=== PATIENT | male | born 1940 | race Caucasian/White ===

== ENCOUNTER 2018-11-24 23:29 | Inpatient (IN) | payer MEDICARE ==
[~2018-11-24] VITALS: Ht 182.9 cm; Wt 87.5 kg
--- NOTE | ~2018-11-24 | DS ---
PATIENT:BRIAN WALKER :44 MEDICAL RECORD: [id number] DISCHARGE SUMMARY ADMISSION DATE: 11/25/18 DISCHARGE DATE: 12/18/18 DISCHARGE DIAGNOSES: Major neurocognitive disorder Alzheimer's type with behavioral disturbances, hyperlipidemia, hypertension, history of CVA, GERD, bilateral lower extremity edema, constipation, insomnia, chronic low back pain and shoulder pain. HOSPITAL COURSE: The patient was admitted to the Geropsych unit. Based on his symptomatology of aggression with care at his nursing facility, his medications were changed and notably patient was started on 20 mg of Geodon at bedtime and since that time, his behavior has become less agitated, aggressive and at time of discharge, the patient was simply confused, talking about going to the bank all the time, but not agitated, nor aggressive. On date of discharge, he denied suicidal or homicidal ideation, auditory or visual hallucinations or delusions and was not aggressive. DISCHARGE MEDICATIONS: Include Voltaren gel 2 grams q.i.d. topical, Geodon 20 mg q.h.s., Micardis 80 mg daily, Desyrel 25 mg q.h.s., lidocaine patch daily, Namenda 5 mg b.i.d., Aricept 10 mg q.h.s., Senokot tablet 2 tabs daily, Lipitor 20 mg in the morning, melatonin 3 mg at night, Protonix 40 mg a day. DISCHARGE PLAN: The patient is to be discharged back to his nursing facility today to [facility]. Case discussed with nursing, chart reviewed. The patient interviewed. TRANSINT:[id number] Voice Confirmation ID: [id number] DOCUMENT ID: [id number] GLENN LOPEZ MD CC: [id number] DICTATION DATE: 12/18/181647 MAGNETIC RESONANCE TECHNOLOGIST: 12/19/18 1051 DIS IN 12/18/18 [facility] [address] [place] [address]
--- NOTE | ~2018-11-24 | PN ---
PATIENT:BRIAN WALKER MEDICAL RECORD: [id number] LOCATION:[address] ADMISSION DATE: 11/25/18 PROGRESS NOTE DATE OF SERVICE: 12/13/2018 SUBJECTIVE: The patient's case was discussed with staff. He has no new complaint. OBJECTIVE: The patient denies intent to harm himself or others. He is tolerating his medicines well. Eye contact is poor. ASSESSMENT: Senile dementia of the Alzheimer's type with behavioral disturbances. PLAN: The patient's current medicines have been reviewed and will be maintained. His long-term prognosis is guarded. I am going to reduce his Geodon to 20 mg at bedtime. TRANSINT:[id number] Voice Confirmation ID: [id number] DOCUMENT ID: [id number] MORENA HUTTON MD CC: [id number] DICTATION DATE: 12/13/18 1525 LAYOUT DESIGNER: 12/13/18 [address] [facility] [address] [id number]
[2018-11-24] MEDS ORDERED: BUSPAR 15 MG TA15 MG (23:46)
[2018-11-24] MEDS ORDERED: MELATONIN 3 MG1 TAB (23:46)
[2018-11-24] MEDS ORDERED: XANAX0.5 MG (23:46)
[2018-11-24] MEDS ORDERED: ALEVE220 MG (23:47)
[2018-11-24] MEDS ORDERED: OMEPRAZOLE20 M1 (23:47)
[2018-11-24] MEDS ORDERED: MICARDIS80 MG (23:47)
[2018-11-24] MEDS ORDERED: LIPITOR80 MG (23:47)
[2018-11-25 00:08] LABS: APPEARANCE CLEAR (CLEAR); BILIRUBIN NEGATIVE (NEGATIVE); COLOR YELLOW (YELLOW); GLUCOSE NEGATIVE (NEGATIVE); KETONE NEGATIVE (NEGATIVE); NITRITE NEGATIVE (NEGATIVE); PROTEIN NEGATIVE (NEGATIVE); UROBILINOGEN NORMAL (NORMAL)
--- NOTE | 2018-11-25 00:08 | NUR ---
IN AND OUT CATH PER STERILE TECHNIQUE. PT MOANED, BUT DID NOT WAKE UP.
[2018-11-25 00:09] LABS: BASOPHILS 0.6 % (0-2); EOSINOPHILS 3.3 % (0-7); HEMATOCRIT 36.2 % (42.0-54.0); HEMOGLOBIN 12.2 g/dL (13.5-17.5); IMMATURE GRANULOCYTES 0.2 % (0-5); LYMPHOCYTES 24.4 % (15-50); MCH 30.7 pg (26.0-34.0); MCHC 33.7 g/dL (31.0-37.0); MEAN PLATELET VOLUME 9.9 fL (7.4-10.4); NEUTROPHILS 60.5 % (40-80); PLATELET COUNT 214 10x3/uL (130-400); RBC 3.98 10x6/uL (4.20-6.10); RDW 15.1 % (11.5-14.5); WBC 4.8 10x3/uL (4.8-10.8)
[2018-11-25 00:26] LABS: UDS - AMPHET NEGATIVE QUAL (NEGATIVE); UDS - BARB NEGATIVE QUAL (NEGATIVE); UDS - BENZO POSITIVE QUAL (NEGATIVE); UDS - COCAINE NEGATIVE QUAL (NEGATIVE); UDS - OPIATE NEGATIVE QUAL (NEGATIVE); UDS - PCP NEGATIVE QUAL (NEGATIVE); UDS - THC NEGATIVE QUAL (NEGATIVE)
[2018-11-25 00:30] VITALS: BP 103/53
[2018-11-25 00:30] LABS: ALBUMIN 2.9 g/dL (3.4-5.0); ALKALINE PHOSPHATASE 130 U/L (46-116); ALT (SGPT) 37 U/L (10-68); BILIRUBIN - TOTAL 0.52 mg/dL (0.2-1.3); CALC OSMOLALITY 277 mosm/kg (275-300); CALCIUM 8.5 mg/dL (8.5-10.1); CARBON DIOXIDE 23.2 mmol/L (21.0-32.0); CHLORIDE - SERUM 107 mmol/L (98-107); CREATININE - SERUM 0.9 mg/dL (0.6-1.3); GLUCOSE 109 mg/dL (74-106); POTASSIUM - SERUM 3.6 mmol/L (3.5-5.1); PROTEIN - SERUM 6.2 g/dL (6.4-8.2); SODIUM 139 mmol/L (136-145); UREA NITROGEN 9 mg/dL (7-18); eGFR NON AFRICAN AMERICAN 87 mL/min (90-120)
--- NOTE | 2018-11-25 01:15 | NUR ---
PT SITTING UP ON BED. PT ASSISTED INTO GOWN.
[2018-11-25 02:13] VITALS: BP 121/77
[2018-11-25 02:31] VITALS: BP 121/77
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
[2018-11-25 06:42] LABS: CHOL - HDL RATIO 3.4 ratio (2.3-4.9); LDL-HDL RATIO 1.6 ratio (1.5-3.5); THYROID STIMULATING HORMONE 2.66 uIU/mL (0.36-3.74)
--- NOTE | 2018-11-25 07:30 | NUR ---
PT IS ALERT AND ORIENTED TO PERSON ONLY. CALM AND COOPERATIVE WITH ASSESSMENT. REDIRECT AND REORIENT NEEDED. NO AGGRESSION NOTED AT THIS TIME. MED COMPLIANT. FALL PRECAUTIONS IN PLACE. WILL CONTINUE TO MONITOR Q 15 MINUTES FOR SAFETY.
[2018-11-25 19:29] VITALS: BP 110/67
--- NOTE | 2018-11-25 21:31 | NUR ---
PATIENT IS CALM, PLEASANT, CONFUSED BUT NOT CONFUSED UPON ADMISSION, HAS TO BE DIRECTED AND REDIRECTED. HE CAN MAKE NEEDS KNOWN, COMPLIANT WITH MEDS, NO ADVERSE REACTION NOTED. WILL MONITOR AND FOLLOW POC
--- NOTE | 2018-11-26 08:00 | NUR ---
PATIENT IS AWAKE AND ALERT, WITH CONFUSION NOTED. CALM AND COOPERATIVE WITH CARE AND ASSESSMENT. REDIRECT AND REORIENT NEEDED. FALL PRECAUTIONS IN PLACE. MEDICATION COMPLIANT. WILL CONTINUE PLAN OF CARE.
[2018-11-26 08:12] VITALS: BP 117/71
[2018-11-26 09:02] VITALS: BMI 24.4
[2018-11-26 10:57] VITALS: Ht 182.9 cm; Wt 87.5 kg
--- NOTE | 2018-11-26 11:24 | NUR ---
NAPROXEN 250 MG PO GIVEN FOR LEVEL #10 LOWER BACK PAIN.
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
[2018-11-26 19:53] VITALS: BP 104/50; BP 107/72; BP 138/78
--- NOTE | 2018-11-27 03:58 | NUR ---
RECEIVED IN PATIENT ROOM. GETTING READY FOR BED. CALM AND COOPERATIVE WITH CARE AND ASSESSMENT. NO AGGRESSIVE BEHAVIORS. REDIRECT AND REORIENT NEEDED. RESTING IN BED WITH EYES CLOSED AT THIS TIME. CONTINUE PLAN OF CARE.
[2018-11-27 07:00] VITALS: BP 118/82
[2018-11-27 08:15] LABS: RAPID PLASMA REAGIN Non Reactive (Non Reactive)
--- NOTE | 2018-11-27 12:44 | PN ---
PATIENT:BRIAN WALKER MEDICAL RECORD: [id number] LOCATION:[address] ADMISSION DATE: 11/25/18 PROGRESS NOTE DATE OF SERVICE: 11/26/2018 SUBJECTIVE: The patient's case was discussed with staff. He has no new complaint. OBJECTIVE: The patient is much more awake and alert today. He is still severely impaired cognitively, but he is rationally able to make casual conversation with me and answer questions appropriately. ASSESSMENT: Senile dementia of the Alzheimer's type with behavioral disturbances. PLAN: Current medicines have been reviewed and will be maintained. His long-term prognosis is guarded. Both supportive and educational interventions were made. TRANSINT:[id number] Voice Confirmation ID: [id number] DOCUMENT ID: [id number] MORENA HUTTON MD at 1244 CC: [id number] DICTATION DATE: 11/26/18 1625 COMMUNICATION SPECIALIST: 11/26/18 1858 ADM IN [facility] [address] [place] [address]
[2018-11-27 19:38] VITALS: BP 117/62
[2018-11-28 08:00] VITALS: BP 115/73
--- NOTE | 2018-11-28 10:00 | NUR ---
PATIENT AWAKE AND ALERT. CALM AND COOPERATIVE WITH CARE AND ASSESSMENT. NO AGGRESSION NOTED. MEDICATION COMPLIANT. WILL CONTINUE POC.
--- NOTE | 2018-11-28 15:45 | PN ---
PATIENT:BRIAN WALKER MEDICAL RECORD: [id number] LOCATION:[address] ADMISSION DATE: 11/25/18 PROGRESS NOTE DATE OF SERVICE: 11/25/2018 SUBJECTIVE: The patient's case was discussed with staff. He has no new complaint. OBJECTIVE: The patient denies intent to harm himself or others. He is tolerating his medicines well. He has been somewhat agitated today and did require some p.r.n. medication. ASSESSMENT: Senile dementia of the Alzheimer's type with behavioral disturbances. PLAN: The patient is going to be given a low dose of Trilafon to assist with his behavioral disruptions. He will be monitored for clinical changes associated with its use. His long-term prognosis is guarded. TRANSINT:[id number] Voice Confirmation ID: [id number] DOCUMENT ID: [id number] MORENA HUTTON MD at 1545 CC: [id number] DICTATION DATE: 11/27/18 1537 HOOP RIVETING MACHINE OPERATOR HELPER: 11/27/18 1546 ADM IN [place] [id number] [place] [address]
--- NOTE | 2018-11-28 18:27 | NUR ---
PATIENT OBSERVED MAKING UNUSUAL GESTURES IN THE DINING ROOM. STATED THAT HE WAS SEEING WIRES STRETCHED ACROSS THE ROOM AND WAS REMOVING THEM SO THAT HE COULD PASS.
[2018-11-28 22:21] VITALS: BP 120/71
--- NOTE | 2018-11-29 02:00 | NUR ---
RECEIVED IN DAYROOM. WANDERING AROUND. CALM AND COOPERATIVE WITH CARE AND ASSESSMENT. NO AGGRESSIVE BEHAVIORS. REDIRECT AND REORIENT A NEEDED. RESTING IN BED WITH EYES CLOSED AT THIS TIME. CONTINUE PLAN OF CARE.
[2018-11-29 09:08] VITALS: BP 112/77
--- NOTE | 2018-11-29 11:54 | NUR ---
B) The patient is confused, he knows his name, but not place or time. He keeps saying "I was supposed to leave, I'm not supposed to still be here." He has poor insight into his situation. I) Provide prescribed meds, redirect to reality as needed. R) The patient is compliant with meds, he does keep asking for the phone. He needs much redirection and reetitive asnswers to his questions. P) Continue POC.
--- NOTE | 2018-11-29 14:46 | PN ---
PATIENT:BRIAN WALKER MEDICAL RECORD: [id number] LOCATION:[address] ADMISSION DATE: 11/25/18 PROGRESS NOTE DATE OF SERVICE: 11/28/2018 SUBJECTIVE: The patient's case was discussed with staff. He has no new complaint. OBJECTIVE: The patient is sleeping adequately. He is tolerating his medicines well. He has not been aggressive today. ASSESSMENT: Senile dementia of the Alzheimer's type with behavioral disturbances. PLAN: Current medicines and therapies have been reviewed and will be maintained. His long-term prognosis is guarded. TRANSINT:[id number] Voice Confirmation ID: [id number] DOCUMENT ID: [id number] MORENA HUTTON MD at 1446 CC: [id number] DICTATION DATE: 11/28/18 1637 CASINO MANAGER: 11/28/18 192 ADM IN [facility] [address] [place] [address]
--- NOTE | 2018-11-29 16:30 | NUR ---
Spoke to the patient's spouse and she would like to know if the patient is on any medication that would cause hallucinations. Spoke to her about dementia and how dementia can cause hallucinations and that he is on medication that will alleviate the hallucinations, but that it may not take the hallucinations completely away. At this time Cesar Leger spoke to the family and interjected information about dementia and alzheimer's. She told them to look at a website and provided the site and she also provided a written handout to the spouse. The patient's spouse looked at the top words on the sheet and traced over it with her finger and said "Well, I don't see how he can have this when 6 weeks ago he was out of it, getting tube feedings etc., he is improving, getting better." She then pushed the Alzheimer's sheet away from her and toward the patient's [id number]. And said "I just don't think so, I do not believe it."
--- NOTE | 2018-11-29 19:42 | NUR ---
RECEIVED IN DAYROOM. SOCIALIZING WITH PEERS. INTRUSIVE AT TIMES. CALM AND COOPERATIVE WITH CARE AND ASSESSMENT. NO AGGRESSIVE BEHAVIORS. REDIRECT AND REORIENT NEEDED. CONTINUES TO SIT IN DAYROOM AND SOCIALIZE WITH PEERS AT THIS TIME. CONTINUE PLAN OF CARE.
[2018-11-29 20:11] VITALS: BP 121/70
--- NOTE | 2018-11-30 08:17 | NUR ---
B) The patient is very confused, he is keeps wandering into others rooms, he says he is trying to find the bottom floor, staff explain he is on the bottom floor, he continues to ask the same question. He then requests that the MHT's that go into the rooms do something with each of the dressers and he says he has to get home and see about getting his two tractors fixed. He does not know where he is and he has poor insight into his situation. I) Provide prescribed meds. R) The patient is compliant with meds. P) Continue POC.
[2018-11-30 09:37] VITALS: BP 117/79
--- NOTE | 2018-11-30 15:55 | PN ---
PATIENT:BRIAN WALKER MEDICAL RECORD: [id number] LOCATION:[address] ADMISSION DATE: 11/25/18 PROGRESS NOTE DATE OF SERVICE: 11/29/2018 SUBJECTIVE: The patient's case was discussed with staff. He has no new complaint. OBJECTIVE: The patient is in good behavioral control, but quite impaired cognitively. He denies that he would seek to harm himself or others. He is generally tolerating his medicines well. ASSESSMENT: Senile dementia of the Alzheimer's type with behavioral disturbances. PLAN: Current medicines have been reviewed and will be maintained. Long-term prognosis is guarded. Brief supportive and educational interventions were made. TRANSINT:[id number] Voice Confirmation ID: [id number] DOCUMENT ID: [id number] MORENA HUTTON MD at 1555 CC: [id number] DICTATION DATE: 11/29/18 1532 SOLAR LAB TECHNICIAN: 11/29/18 1554 ADM IN [facility] [address] [place] [address]
[2018-11-30 19:47] VITALS: BP 121/53
--- NOTE | 2018-12-01 04:01 | NUR ---
B) Patient is alert and oriented to self, very confused, delusional, wanders and rambles, I) Administered scheduled medications as ordered, monitored for safety, redirected as needed R) Mediation compliant, up during the night wandering the halls, P) Continue plan of care.
--- NOTE | 2018-12-01 07:31 | NUR ---
B) The patient is awake and he is talking. He has poor insight into his situation. He does not know where he is or the time. He knows his name. He is grandiose as he is stating he has 31 credit cards and now they are lost. He ambulates and has his glasses on, but he still acts like he can not see, he runs into furniture as he walks. I) Provide prescribed meds, redirect to appropriate behavior. R) The patient is compliant with medications, but he needs much prompting because he is not following short simple direction. P) Continue POC.
[2018-12-01 07:54] VITALS: BP 96/69
--- NOTE | 2018-12-01 11:38 | PN ---
PATIENT:BRIAN WALKER MEDICAL RECORD: [id number] LOCATION:[address] ADMISSION DATE: 11/25/18 PROGRESS NOTE DATE OF SERVICE: 11/30/2018 SUBJECTIVE: The patient's case was discussed with staff. He has no new complaint. OBJECTIVE: The patient denies intent to harm himself or others. He is quite impaired cognitively. He has been eating and sleeping reasonably well. ASSESSMENT: No change in diagnoses. PLAN: Supportive and educational interventions were made. Long-term prognosis is guarded. TRANSINT:[id number] Voice Confirmation ID: [id number] DOCUMENT ID: [id number] MORENA HUTTON MD at 1138 CC: [id number] DICTATION DATE: 11/30/18 1634 ACCOUNT MANAGER FOREST SERVICE: 11/30/189 ADM IN [place] [id number] [place] [address]
[2018-12-01 20:07] VITALS: BP 130/65
--- NOTE | 2018-12-01 21:24 | NUR ---
B) Patient is alert and very confused, keeps thinking that he has to fix things, wanders, very difficult to communicate with, constantly distracted by his own delusions, I) Administered scheduled medications as ordered, redirected frequently as needed, monitored for safety R) Medication compliant, restless and delusional, P) Continue plan of care.
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
[2018-12-02 07:00] VITALS: BP 129/76
--- NOTE | 2018-12-02 10:17 | PN ---
PATIENT:BRIAN WALKER MEDICAL RECORD: [id number] LOCATION:[address] ADMISSION DATE: 11/25/18 PROGRESS NOTE DATE OF SERVICE: 12/01/2018 SUBJECTIVE: The patient's case was discussed with staff. He has no new complaint. OBJECTIVE: The patient is in good behavioral control with limited insight about his condition. He tolerates his medicines well. ASSESSMENT: Senile dementia of the Alzheimer's type with behavioral disturbances. PLAN: Supportive and educational interventions were made. Long-term prognosis is guarded. TRANSINT:[id number] Voice Confirmation ID: [id number] DOCUMENT ID: [id number] MORENA HUTTON MD at 1017 CC: [id number] DICTATION DATE: 12/01/18 1148 OWNER: 12/01/18 1201 ADM IN [place] [id number] [place] [address]
--- NOTE | 2018-12-02 16:48 | NUR ---
here to visit.
--- NOTE | 2018-12-02 17:52 | NUR ---
IS CONFUSED .SLEPT THIS AM TILL NOON.PO MEDS GIVEN LATE DUE TO HIS BEING SEDATED.COMPLIANT WITH MEDS AND STAFF.WILL CONTINUE WITH PLAN OF CARE,MONITOR FOR SAFETY AND CHANGES.
[2018-12-02 23:07] VITALS: BP 122/67
--- NOTE | 2018-12-03 02:36 | NUR ---
HALDOL AND ATIVAN GIVEN IM TO PATIENT FOR EXTREME AGITATION AND PT. TALKING TO HIMSELF. MULTIPLE TIMES TRIED TO REDIRECT PATIENT BY TALKING, GIVING FOOD AND DRINKS TO PATIENT, NOT ABLE TO BE CALMED DOWN. PATIENT POINTING AT THE WALL IN HIS ROOM AND ASKED IF THE TV WAS WORKING, HE WOULD PULL HIS SHIRT (FROM THE COLLAR) AND TALK INTO IT AND SAY "DID YOU HEAR THAT?" WILL MONITOR
[2018-12-03 07:00] VITALS: BP 110/62
--- NOTE | 2018-12-03 07:45 | NUR ---
PT IS VERY CONFUSED. ALERT TO PERSON ONLY. PT HAS POOR INSIGHT INTO SITUATION. CALM AND COOPERATIVE WITH ASSESSMENT. NO AGGRESSION NOTED AT THIS TIME. MED COMPLIANT. REDIRECT AND REORIENT NEEDED. FALL PRECAUTIONS IN PLACE. REALITY ORIENTED NEEDED. WILL CPOC.
--- NOTE | 2018-12-03 13:45 | PN ---
PATIENT:BRIAN WALKER MEDICAL RECORD: [id number] LOCATION:[address] ADMISSION DATE: 11/25/18 PROGRESS NOTE DATE OF SERVICE: 12/02/2018 SUBJECTIVE: The patient's case was discussed with staff. He has no new complaint. OBJECTIVE: The patient was significantly agitated this morning and required p.r.n. medication. He has very limited insight about his situation. He is severely impaired cognitively. ASSESSMENT: Senile dementia of the Alzheimer's type with behavioral disturbances. PLAN: Supportive and educational interventions were made. Long-term prognosis is guarded. His Aricept is going to be increased to 10 mg at bedtime. TRANSINT:[id number] Voice Confirmation ID: [id number] DOCUMENT ID: [id number] MORENA HUTTON MD at 1345 CC: [id number] DICTATION DATE: 12/02/18 1020 WHITE HAT HACKER: 12/02/18 1328 ADM IN [facility] [address] [place] [address]
--- NOTE | 2018-12-03 13:48 | NUR ---
Nutrition Follow Up: Chart reviewed. Pt is eating 100% meal avg on a regular diet. +BM 12/02/18. Meds and labs reviewed. Rec continue current diet. Pt continues at low nutritional risk. RD following.
[2018-12-03 20:07] VITALS: BP 140/77
--- NOTE | 2018-12-03 22:50 | NUR ---
RECEIVED IN PATIENT ROOM. RESTING IN BED WITH EYES OPEN. CALM AND COOPERATIVE WITH CARE AND ASSESSMENT. NO AGGRESSIVE BEHAVIORS. REDIRECT AND REORIENT NEEDED. RESTING IN BED WITH EYES CLOSED AT THIS TIME. CONTINUE PLAN OF CARE.
[2018-12-04 08:00] VITALS: BP 128/79
--- NOTE | 2018-12-04 08:00 | NUR ---
PT IS AWAKE AND ALERT. PT IS CALM AND COOPERATIVE WITH ASSESSMENT. REDIRECT AND REORIENT NEEDED. NO AGGRESSION NOTED AT THIS TIME. PRESCRIBED MEDS PROVIDED. MED COMPLIANT. FALL PRECAUTIONS IN PLACE. WILL CONTINUE TO MONITOR Q 15 MINUTES FOR SAFETY.
--- NOTE | 2018-12-04 15:50 | PN ---
PATIENT:BRIAN WALKER MEDICAL RECORD: [id number] LOCATION:[address] ADMISSION DATE: 11/25/18 PROGRESS NOTE DATE OF SERVICE: 12/03/2018 SUBJECTIVE: The patient's case was discussed with staff. He has no new complaint. OBJECTIVE: The patient was significantly agitated last night and required p.r.n. medication. He has pretty limited recollection of what happened. Today, he is calm and cooperative. This is the second night in a row that he has required p.r.n. medication because of some agitation. ASSESSMENT: Senile dementia of the Alzheimer's type with behavioral disturbances. PLAN: I am going to start the patient on a low dose of Geodon on a scheduled basis. Hopefully, this will help with some of his agitated behavior. I am going to discontinue the Trilafon since it does not seem to have been helpful. TRANSINT:[id number] Voice Confirmation ID: [id number] DOCUMENT ID: [id number] MORENA HUTTON MD at 1550 CC: [id number] DICTATION DATE: 12/03/18 1537 ANIMAL RIDE MANAGER: 12/03/18 1733 ADM IN [facility] [address] [id number]
--- NOTE | 2018-12-04 16:01 | NUR ---
SW SPOKE TO PT'S AND GAVE HER UPDATE ON DISCHARGE PLANNING. [facility] IS WAITING ON UPDATE WHEN PT GETS STABLE. JORGE IS BACK AND JANIE WILL SEND OFF PPW TO ID IN A COUPLE OF DAYS. PT'S VERBALIZED UNDERSTANDING.
[2018-12-04 20:43] VITALS: BP 114/63
--- NOTE | 2018-12-04 21:22 | NUR ---
B) The patient is awake and alert, but he is confused, he was not able to understand simple direction to take a sip out of a straw. He ambulates independently, wears glasses, but he is not able to see, he walks into reyes and grabs at inanimate objects. I) Provide prescribed meds. R) The patient is compliant with meds, did crush them in applesauce. P) Continue POC.
--- NOTE | 2018-12-05 07:45 | NUR ---
PT IS AWAKE AND ALERT TO PERSON. PT WANDERS UNIT WITH STAFF PRESENT. PT IS VERY CONFUSED. CALM AND COOPERATIVE WITH ASSESSMENT. NO AGGRESSION NOTED. MED COMPLIANT. REDIRECT AND REORIENT NEEDED. FALL PRECAUTIONS IN PLACE. WILL CPOC.
[2018-12-05 08:25] VITALS: BP 119/85
--- NOTE | 2018-12-05 14:03 | PN ---
PATIENT:BRIAN WALKER MEDICAL RECORD: [id number] LOCATION:[address] ADMISSION DATE: 11/25/18 PROGRESS NOTE DATE OF SERVICE: 12/04/2018 SUBJECTIVE: The patient's case was discussed with staff. He has no new complaint. OBJECTIVE: The patient is in good behavioral control, but clearly quite confused and disorganized. He is intermittently eating adequately; but on the whole, I am not satisfied with his caloric intake. ASSESSMENT: Senile dementia of the Alzheimer's type with behavioral disturbances. PLAN: The patient will be started on Megace for an appetite stimulant. [facility] is considering him. If they accept him, I plan on transitioning him out of the hospital in a few days if this level of improvement continues. TRANSINT:[id number] Voice Confirmation ID: [id number] DOCUMENT ID: [id number] MORENA HUTTON MD at 1403 CC: [id number] DICTATION DATE: 12/04/18 1544 BANK EXAMINER: 12/04/18 1838 ADM IN [facility] [address] [place] [address]
[2018-12-05 20:00] VITALS: BP 112/69
--- NOTE | 2018-12-05 20:35 | NUR ---
RECEIVED IN PATIENT ROOM. COMBATIVE WITH MHT WHILE ASSISTING HIM TO GET READY FOR BED. CONFUSED. THOUGHT MHT WAS WEARING HIS GLASSES. REDIRECT AND REORIENT NEEDED. RESTING IN BED WITH EYES OPEN AT THIS TIME. CONTINUE PLAN OF CARE.
[2018-12-05 22:47] VITALS: BP 112/69
--- NOTE | 2018-12-06 09:54 | NUR ---
RED'C PT SITTING IN CHAIR AT NURSES STATION AWAITING BREAKFAST. RESP EVEN AND NONLABORED. NO ACUTE DISTRESS NOTED. CONFUSION NOTED. VISUAL HALLUNCINATIONS NOTED. PT TENDS TO WANDER. AMBULATES PER SELF. PT TAKES MEDICATIONS. WILL CONT TO MONITOR Q 15 MINS FOR SAFETY.
[2018-12-06 12:50] VITALS: BP 125/81
--- NOTE | 2018-12-06 14:19 | PN ---
PATIENT:BRIAN WALKER MEDICAL RECORD: [id number] LOCATION:[address] ADMISSION DATE: 11/25/18 PROGRESS NOTE DATE OF SERVICE: 12/05/2018 SUBJECTIVE: The patient's case was discussed with staff. He has no new complaint. OBJECTIVE: The patient denies intent to harm himself or others. He is generally tolerating his medicines well. He is eating better with the introduction of Megace. At this point, I do not think he is over sedated and I will maintain him on his current medications. ASSESSMENT: Senile dementia of the Alzheimer's type with behavioral disturbances. PLAN: The patient's is planning to take him to [facility]. TRANSINT:[id number] Voice Confirmation ID: [id number] DOCUMENT ID: [id number] MORENA HUTTON MD at 1419 CC: [id number] DICTATION DATE: 12/05/18 1419 METAL FABRICATING SUPERVISOR: 12/05/18 1624 ADM IN [id number] [place] [address]
--- NOTE | 2018-12-06 15:43 | NUR ---
ATTEMPTED TO CONTACT ALIDA MACIAS. NO ANSWER AT NUMBER LEFT WITH STAFF. [phone]. AWAITING CALLBACK. INDIVIDUAL CALLED EARLIER THIS SHIFT TO MAKE DISCHARGE PLANS FOR PT. DR. CORREA IS NOT DISCHARGING PT ON 12/07/18.
--- NOTE | 2018-12-06 17:58 | NUR ---
PT SITTING IN DAY AREA WITH STAFF AT THIS TIME. PT CONTS TO BE CONFUSED. VISUAL HALLUNCINATIONS NOTED AT TIMES. REDIRECT AND REORIENT NEEDED. MED COMPLIANT. NO BEHAVIORS AGGRESSION NOTED. AMBULATES. NO NONEDIABLE OBJECTS ATE THIS SHIFT. PLESANT WITH STAFF. EASY TO REDIRECT. WILL CONT PLAN OF CARE. WILL NO ACUTE DISTRESS NOTED. CONT TO MONITOR Q 15 MINS FOR SAFETY.
[2018-12-06 20:36] VITALS: BP 125/79
--- NOTE | 2018-12-07 03:10 | NUR ---
B) Patient is alert and oriented to self, confused and hallucinating at times, seeing thing that are not there, delusional at times, I) Administered scheduled medications as ordered, monitored for safety, redirected as needed, R) Mediation compliant, difficult to get his attention for instructions, P) Continue plan of care.
--- NOTE | 2018-12-07 05:15 | PN ---
PATIENT:BRIAN WALKER MEDICAL RECORD: [id number] LOCATION:[address] ADMISSION DATE: 11/25/18 PROGRESS NOTE DATE OF SERVICE: 12/06/2018 SUBJECTIVE: The patient's case was discussed with staff. He has no new complaint. OBJECTIVE: The patient denies intent to harm himself or others. He generally tolerates his medicines well. Eye contact is poor. ASSESSMENT: Senile dementia of the Alzheimer's type with behavioral disturbances. PLAN: Current medicines and therapies have been reviewed and will be maintained. His long-term prognosis is guarded. TRANSINT:[id number] Voice Confirmation ID: [id number] DOCUMENT ID: [id number] MORENA HUTTON MD at 0515 CC: [id number] DICTATION DATE: 12/06/18 165 COURIER DELIVERY DRIVER: 12/06/181918 ADM IN [facility] [address] [id number]
[2018-12-07 06:57] LABS: CALC OSMOLALITY 278 mosm/kg (275-300); CALCIUM 9.2 mg/dL (8.5-10.1); CARBON DIOXIDE 23.9 mmol/L (21.0-32.0); CHLORIDE - SERUM 103 mmol/L (98-107); CREATININE - SERUM 0.9 mg/dL (0.6-1.3); GLUCOSE 93 mg/dL (74-106); POTASSIUM - SERUM 3.8 mmol/L (3.5-5.1); SODIUM 138 mmol/L (136-145); UREA NITROGEN 20 mg/dL (7-18); eGFR NON AFRICAN AMERICAN 87 mL/min (90-120)
--- NOTE | 2018-12-07 07:38 | NUR ---
REC'D PT STANDING AT NURSES STATION. RESP EVEN AND NONLABORED. NO ACUTE DISTRESS NOTED. CONFUSION NOTED. VISUAL HALLUNCINATIONS NOTED. AMBULATES PER SELF. PT IS TALKING ABOUT GOING TO [employer] TO BUY GLASSES AND HE HAS NO MONEY. WILL CONT PLAN OF CARE. WILL CONT TO MONITOR Q 15 MINS FOR SAFETY.
[2018-12-07 07:58] VITALS: BP 137/76
--- NOTE | 2018-12-07 08:14 | NUR ---
SPOKE WITH ALIDA MACIAS WITH FACILITY [phone]. VERBALIZED UNDERSTANDING WITH NO DISCHARGE AT THIS TIME.
[2018-12-07 08:21] LABS: BASOPHILS 0.3 % (0-2); EOSINOPHILS 1.8 % (0-7); IMMATURE GRANULOCYTES 0.1 % (0-5); LYMPHOCYTES 32.5 % (15-50); MCH 30.7 pg (26.0-34.0); MCHC 33.3 g/dL (31.0-37.0); MCV 92.1 fL (80.0-100.0); MEAN PLATELET VOLUME 10.6 fL (7.4-10.4); MONOCYTES 13.8 % (2-11); NEUTROPHILS 51.5 % (40-80); RBC 4.56 10x6/uL (4.20-6.10); WBC 7.2 10x3/uL (4.8-10.8)
[2018-12-07 08:22] LABS: PLATELET COUNT 281 10x3/uL (130-400)
[2018-12-07 09:02] VITALS: BP 137/76
--- NOTE | 2018-12-07 11:30 | NUR ---
The patient's spouse called and checked on him. She wanted me to let him know she will see him tomorrow.
--- NOTE | 2018-12-07 17:41 | NUR ---
PT WANDERING DINING AREA LOOKING FOR A BANK TO GET MONEY OUT TO BUY GLASSES AND GO TO [facility]. PT STATED HE SAW THE BANK TELLERS IN THE HALLWAY. RESP EVEN AND NONLABORED. NO ACUTE DISTRESS NOTED. CONFUSION NOTED. PT RAN INTO WALL TWICE THIS SHIFT. PT ASKS WHEN HE IS LEAVING AND WHERE HE IS GOING. REORIENT AND REDIRECT NEEDED. PT IS EASY TO REDIRECT AT TIMES. NO AGGRESSIVE BEHAVIOR NOTED AT THIS TIME. PT DID HAVE 2 INCONTIENT EPISODES THIS SHIFT. PT TOLERATED CLEAN UP WELL. MED COMPLIANT. AMBULATES PER SELF. WILL CONT PLAN OF CARE. WILL CONT TO MONITOR Q 15 MINS FOR SAFETY.
[2018-12-07 19:24] VITALS: BP 106/58
--- NOTE | 2018-12-07 19:51 | NUR ---
B) Patient is alert and oriented to self, very confused, wanders, hallucinates, delusional, I) Administered scheduled medications as ordered, monitored for safety, redirected as needed, R) medication compliant, restless, P) Continue plan of care.
--- NOTE | 2018-12-07 23:12 | NUR ---
PATIENT GIVEN HALDOL2/ATIVAN 0.5 IM FOR EXTREME PSYCHOSIS AND AGITATION. ATTEMPTED TO REDIRECT PATIENT FOR 2 HOURS WITHOUT SUCCESS. PATIENT IS EXTREMLY ARGUMENTATIVE, GOING IN OTHER RESIDENT'S ROOMS, TRYING TO GET OFF OF THE UNIT. APPEARS TO BE SEEING "GLASS" ON THE FLOOR. ASKING QUESTION AFTER QUESTION. POOR MEMORY. WILL MONITOR.
--- NOTE | 2018-12-08 07:30 | NUR ---
REC'D PT SITTING IN CHAIR WITH EYES OPEN. RESP EVEN AND NONLABORED. NO ACUTE DISTRESS NOTED. CONFUSION NOTED. REDIRECT AND REORIENT NEEDED. AMBULATES PER SELF. NO BEHAVIORS NOTED AT THIS TIME. PT DID RECIEVE A PRN ON PREVIOUS SHIFT DUE TO AGGRESSIVE BEHAVIOR. WILL CONT PLAN OF CARE. WILL CONT TO MONITOR Q 15 MINS FOR SAFETY.
--- NOTE | 2018-12-08 08:30 | NUR ---
PT HAD BEEN SITTING IN HALLWAY. STAFF BEGAN TO TAKE PT TO DINING ROOM FOR BREAKFAST. STAFF UNABLE TO LOCATE THE PT. DID CHECK ALL ROOMS, SHOWERS, BATHROOMS AND BREAKROOMS. UNABLE TO FIND PT IN ANY OF THOSE AREAS. MENTAL HEALTH TECH DID PUSH STORAGE ROOM DOOR AND IT DID OPEN. MENTAL HEALTH TECH OPENED DOOR PEERED IN AND PT WAS LYING ON THE FLOOR. UNABLE TO FULLY OPEN THE DOOR. TECH WAS ABLE TO PUSH THE DOOR SLIGHTLY IN ORDER TO ENTER THE ROOM. DOCTOR LIAN PRESENT AND EXAMINED PT. PT DENIES PAIN, FALLS, NECK PAIN. STATING "I GOT TIRED AND LAID DOWN ON THE FLOOR" ASSISTED PT TO STANDING POSITION. ENTERPRISE SOFTWARE DEVELOPER PRESENT DURING SEARCHED. CALLED SECURITY AND PRESENT DURING SEARCH.
[2018-12-08 09:02] VITALS: BP 139/88
--- NOTE | 2018-12-08 16:20 | NUR ---
SPOKE WITH PT IN REGARDS TO PT WANDERING IN THE STORAGE ROOM THIS MORNING. PT SAID YEA HE DOES THAT. LOOKED AT PT AND STATED "YOU SAID YOU WEREN'T GOING TO DO THAT ANYMORE. YOU PROMISED YOU WERENT GOING TO DO THAT." ATTEMPTED TO EXPLAIN TO PT HE WAS IN THE HOSPITAL AND SHE WAS AT HOME AT NIGHT. STATED "HE IS ACTING LIKE HE WOULD IF HE WAS DRUNK. NOW HE DIDNT DRINK MUCH BUT WHEN HE DID. THIS IS WHAT HE WOULD ACT LIKE." NURSE EXPLAINED THAT PT WAS COMBATIVE WITH HALL MANAGER STAFF AND WAS GIVEN A PRN TO HELP HIM CALM DOWN AND HELP WITH COMBATIVENESS.
--- NOTE | 2018-12-08 18:05 | NUR ---
PT SITTING AT TABLE EATING AT THIS TIME. RESP EVEN AND NONLABORED. NO ACUTE DISTRESS NOTED. CONFUSION NOTED. PT IN WHEELCHAIR DUE TO EXCESSIVE WANDERING AND RUNNING INTO [place]. NO BEHAVIORS NOTED SINCE AM. MED COMPLIANT. PLESANT WITH STAFF, VISITORS AND PEERS. CHAIR ALARM IN PLACE AND ACTIVE FOR SAFETY. PT ALERT AND ORIENTED TO SELF. EATS 100% OF MEALS. CALLED TO ASK IF WE COULD PUT A BANDAID ON HIS GLASSES TO PREVENT THE RED SPOT BEHIND HIS EAR FROM BECOMING REDDER. TECH REMOVED LABEL FROM HIS GLASSES EARLIER IN THE SHIFT. TECH PUT BANDAID ON GLASSES PT STATED "THAT DOES FEEL BETTER." WILL CONT TO MONITOR Q 15 MINS FOR SAFETY. WILL CONT PLAN OF CARE.
--- NOTE | 2018-12-08 18:43 | NUR ---
ADMINISTERED ATIVAN 0.[address] CORREA ORDER. DUE TO RESTLESS AND ANXIETY.
--- NOTE | 2018-12-08 18:45 | PN ---
PATIENT:BRIAN WALKER MEDICAL RECORD: [id number] LOCATION:[address] ADMISSION DATE: 11/25/18 PROGRESS NOTE DATE OF SERVICE: 12/07/2018 SUBJECTIVE: The patient's case was discussed with staff. He has no new complaint. OBJECTIVE: The patient is eating slightly better. He is tolerating his medicines well. He continues to have some unusual psychiatric symptoms with especially visual hallucinations. ASSESSMENT: Senile dementia of the Alzheimer's type with behavioral disturbances. PLAN: The patient is taking 40 mg a day of Geodon. I am reluctant to increase that dose significantly. I am going to order some baseline labs just to ensure that there is nothing toxic or metabolic associated with this. I am concerned that the [id number] ratio with increasing the dose of the Geodon is not going to be beneficial. TRANSINT:[id number] Voice Confirmation ID: [id number] DOCUMENT ID: [id number] MORENA HUTTON MD at 1845 CC: [id number] DICTATION DATE: 12/07/18525 GRAPHIC DESIGN PROFESSOR: 12/07/18 0849 ADM IN [facility] [address] [id number]
[2018-12-08 19:27] VITALS: BP 99/57
--- NOTE | 2018-12-08 20:28 | NUR ---
PATIENT IS VERY CONFUSED, DIFFICULT TO REDIRECT, COMPLIANT WITH MEDS, WILL FOLLOW POC.
--- NOTE | 2018-12-09 08:00 | NUR ---
REC'D PT WANDERING HALLWAY. RESP EVEN AND NONLABORED. NO ACUTE DISTRESS NOTED. CONFUSION NOTED. REDIRECT AND REORIENT NEEDED. PT IS DIFFICULT TO REDIRECT. NO BEHAVIOR NOTED AT THIS TIME. ASSESSMENT AND V/S COMPLETED. WILL CONT PLAN OF CARE.
[2018-12-09 08:27] VITALS: BP 130/94
--- NOTE | 2018-12-09 09:47 | PN ---
PATIENT:BRIAN WALKER MEDICAL RECORD: [id number] LOCATION:[address] ADMISSION DATE: 11/25/18 PROGRESS NOTE DATE OF SERVICE: 12/08/2018 SUBJECTIVE: The patient's case was discussed with staff. He has no new complaint. OBJECTIVE: The patient denies intent to harm himself or others. He does tolerate his medicines well. He is severely impaired cognitively. He has not been seriously aggressive today. ASSESSMENT: Senile dementia of the Alzheimer's type with behavioral disturbances. PLAN: Current medicines have been reviewed and will be maintained. Long-term prognosis is guarded. TRANSINT:[id number] Voice Confirmation ID: [id number] DOCUMENT ID: [id number] MORENA HUTTON MD at 0947 CC: [id number] DICTATION DATE: 12/08/181851 DYNAMIC BALANCER: 12/09/18 0442 ADM IN [facility] [address] [place] [address]
--- NOTE | 2018-12-09 18:27 | NUR ---
PT SITTING IN CHAIR BY NURSE. RESP EVEN AND NONLABORED. NO ACUTE DISTRESS NOTED. PT CONFUSED, EXIT SEEKING AND TENDS TO WANDER. PLESANT WITH STAFF AND PEERS. PT HAD VISITOR TODAY. LEFT CLOTHES FOR PT. INVENTORY SHEET UPDATED. AMBULATES. 100% OF MEALS THIS SHIFT. MED COMPLIANT. WILL CONT PLAN OF CARE.
--- NOTE | 2018-12-09 19:57 | NUR ---
PATIENT IS CONFUSED, HAS HAD VISUAL HALLUCINATIONS THIS WEEKEND, HARD TO REDIRECT AT TIMES, COMPLIANT WITH MEDS. WILL FOLLOW POC
[2018-12-09 21:29] VITALS: BP 132/68
[2018-12-10 07:00] VITALS: BP 168/83
[2018-12-10 07:23] VITALS: BP 126/60
--- NOTE | 2018-12-10 07:30 | NUR ---
REC'D PT IN BED WITH EYES CLOSED. RESPONDS TO VERBAL STIMULI. ALERT AND ORIENTED TO PERSON ONLY. PT IS VERY CONFUSED. REDIRECT AND REORIENT NEEDED. CALM AND COOPERATIVE WITH ASSESSMENT. NO AGGRESSION NOTED AT THIS TIME. WILL CPOC.
--- NOTE | 2018-12-10 15:33 | PN ---
PATIENT:BRIAN WALKER MEDICAL RECORD: [id number] LOCATION:[address] ADMISSION DATE: 11/25/18 PROGRESS NOTE DATE OF SERVICE: 12/09/2018 SUBJECTIVE: The patient's case was discussed with staff. He has no new complaint. OBJECTIVE: The patient is in good behavioral control. He has limited insight about his condition. He does tolerate his medicines well. ASSESSMENT: Senile dementia of the Alzheimer's type with behavioral disturbances. PLAN: Current medicines and therapies have been reviewed. Long-term prognosis is guarded. TRANSINT:[id number] Voice Confirmation ID: [id number] DOCUMENT ID: [id number] MORENA HUTTON MD at 1533 CC: [id number] DICTATION DATE: 12/09/18 1024 GROUP MANAGING DIRECTOR: 12/09/18 1715 ADM IN [id number] [place] [address]
[2018-12-10 20:12] VITALS: BP 125/75
--- NOTE | 2018-12-11 04:05 | NUR ---
RECEIVED IN DAYROOM. WATCHING TV. CALM AND COOPERATIVE WITH CARE AND ASSESSMENT. NO AGGRESSIVE BEHAVIORS. REDIRECT AND REORIENT NEEDED. RESTING IN BED WITH EYES CLOSED AT THIS TIME. CONTINUE PLAN OF CARE.
--- NOTE | 2018-12-11 07:30 | NUR ---
REC'D PT AWAKE AND ALERT TO PERSON ONLY IN HALLWAY BY NURSES STATION. PT CALM AND COOPERATIVE WITH ASSESSMENT. MED COMPLIANT. NO AGGRESSION NOTED. FALL PRECAUTIONS IN PLACE. WILL CPOC.
[2018-12-11 08:24] VITALS: BP 142/97
--- NOTE | 2018-12-11 12:09 | NUR ---
Nutrition follow up: Reviewed chart Pt is on a regular diet with 95% average po intake Weight 189lb Pt continues to be screened at low nutritional risk RD following per protocol
--- NOTE | 2018-12-11 13:08 | PN ---
PATIENT:BRIAN WALKER MEDICAL RECORD: [id number] LOCATION:[address] ADMISSION DATE: 11/25/18 PROGRESS NOTE DATE OF SERVICE: 12/10/2018 SUBJECTIVE: The patient's case was discussed with staff. He has no new complaint. OBJECTIVE: The patient denies intent to harm himself or others. He is quite confused. At times, he is combative, but it seems to be primarily limited to personal care. ASSESSMENT: Senile dementia of the Alzheimer's type with behavioral disturbances. PLAN: Current medicines have been reviewed and will be maintained. His long-term prognosis is guarded. TRANSINT:[id number] Voice Confirmation ID: [id number] DOCUMENT ID: [id number] MORENA HUTTON MD at 1308 CC: [id number] DICTATION DATE: 12/10/18 1620 DIRECTOR MOBILE MEDIA SOLUTIONS: 12/10/18 1847 ADM IN [facility] [address] [place] [address]
[2018-12-11 20:09] VITALS: BP 134/73
--- NOTE | 2018-12-12 03:00 | NUR ---
RECEIVED IN DAYROOM. WALKING AROUND. CALM AND COOPERATIVE WITH CARE AND ASSESSMENT. NO AGGRESSION. REDIRECT AND REORIENT NEEDED. RESTING IN BED WITH EYES CLOSED AT THIS TIME. CONTINUE PLAN OF CARE.
--- NOTE | 2018-12-12 04:52 | NUR ---
PATIENT AWAKE IN [place] YELLING LOUDLY. ANXIOUS. GOING IN ROOMS OF OTHER PATIENTS AND WAKING THEM UP. RESISTIVE TO REDIRECTION. PRN ATIVAN 0.5 MG IM GIVEN FOR ANXIETY. CONTINUES TO YELL AND BE DISTRUPTIVE AT THIS TIME. CONTINUE PLAN OF CARE.
--- NOTE | 2018-12-12 06:00 | NUR ---
PRN ATIVAN 0.5 MG IM EFFECTIVE. PATIENT MORE CALM AND RESTING IN BED WITH EYES CLOSED AT THIS TIME. CONTINUE PLAN OF CARE.
--- NOTE | 2018-12-12 08:30 | NUR ---
DIFFICULT TO AWAKEN THIS AM. HE WALKED TO BATHROOM AND THEN RECLINER. PLEASANT AND CALM AFFECT. COOPERATIVE WITH CARE AND ASSESSMENT. REDIRECT AND REORIENT NEEDED. NO AGGRESSION NOTED. WILL CPOC.
[2018-12-12 09:06] VITALS: BP 167/74
[2018-12-12 15:16] LABS: ALBUMIN 3.3 g/dL (3.4-5.0); ANION GAP 10.8 mmol/L (8-16); BILIRUBIN - TOTAL 0.45 mg/dL (0.2-1.3); CALCIUM 8.9 mg/dL (8.5-10.1); CARBON DIOXIDE 27.3 mmol/L (21.0-32.0); CREATININE - SERUM 1.1 mg/dL (0.6-1.3); POTASSIUM - SERUM 4.1 mmol/L (3.5-5.1); PROTEIN - SERUM 6.8 g/dL (6.4-8.2)
--- NOTE | 2018-12-12 15:58 | PN ---
PATIENT:BRIAN WALKER MEDICAL RECORD: [id number] LOCATION:[address] ADMISSION DATE: 11/25/18 PROGRESS NOTE DATE OF SERVICE: 12/11/2018 SUBJECTIVE: The patient's case was discussed with staff. He has no new complaint. OBJECTIVE: The patient denies intent to harm himself or others. He generally tolerates his medicines well. He is severely confused. At times, he becomes agitated with he is being redirected or personal care is being provided. I anticipate that he can be transitioned out of the hospital soon and it is my understanding that the [facility] is [facility] to [facility] him. TRANSINT:[id number] Voice Confirmation ID: [id number] DOCUMENT ID: [id number] MORENA HUTTON MD at 1558 CC: [id number] DICTATION DATE: 12/11/18 1456 CONTROL ROOM SUPERVISOR: 12/11/18 1551 ADM IN [facility] [address] [place] [address]
[2018-12-12 22:17] VITALS: BP 155/76
--- NOTE | 2018-12-13 04:52 | NUR ---
RECEIVED IN HALLWAY OUTSIDE OF NURSES STATION. RESTING IN RECLINER WITH EYES OPEN. CALM AND COOPERATIVE WITH CARE AND ASSESSMENT. NO AGGRESSIVE BEHAVIORS. REDIRECT AND REORIENT NEEDED. RESTING IN BED WITH EYES CLOSED AT THIS TIME. CONTINUE PLAN OF CARE.
--- NOTE | 2018-12-13 07:42 | NUR ---
B) The patient is awake and alert, he is pleasant and calm at this time. He is interacting with another patient. He ambulates independently, he is wearing glasses, but does not see well as he runs into the wall or a chair at times. He has poor short term memory recall and he has poor insight into his situation. I) Provide prescribed meds. R) The patient is compliant with meds and he does redirect. P) Continue POC.
[2018-12-13 08:20] VITALS: BP 132/80
--- NOTE | 2018-12-13 14:08 | PN ---
PATIENT:BRIAN WALKER MEDICAL RECORD: [id number] LOCATION:[address] ADMISSION DATE: 11/25/18 PROGRESS NOTE DATE OF SERVICE: 12/12/2018 SUBJECTIVE: The patient's case was discussed with staff. He has no new complaint. OBJECTIVE: The patient denies intent to harm himself or others. He generally is tolerating his medicines well. ASSESSMENT: Senile dementia of the Alzheimer's type with behavioral disturbances. PLAN: The patient will be given Geodon at the current dose, but I am going to consolidate it at bedtime. I am also going to treat him with a low dose of trazodone. TRANSINT:[id number] Voice Confirmation ID: [id number] DOCUMENT ID: [id number] MORENA HUTTON MD at 1408 CC: [id number] DICTATION DATE: 12/12/18 1620 EARLY CHILDHOOD: 12/12/18 2326 ADM IN [facility] [address] [place] [address]
[2018-12-13 20:03] VITALS: BP 116/72
--- NOTE | 2018-12-14 02:11 | NUR ---
B) Patient is alert and oriented to self, misunderstands simple instructions, [place], patient difficult to redirect I) Administered scheduled medications as ordered, monitored for safety,redirected as needed, R) Medication compliant, wanders and middle of the night awakening, P) Continue plan of care.
[2018-12-14 09:20] VITALS: BP 136/69
--- NOTE | 2018-12-14 09:47 | NUR ---
B) The patient is awake and alert, he is pleasant and always hungry and requests extra food. He did have cereal in addition to his tray this am. He ambulates independently. He is pleasant and interacting in group at this time. He knows his name, he does not know place or time, and has poor insight into his situation. I) Provide prescribed meds. R) The patient is compliant with meds. P) Continue POC.
[2018-12-14 20:10] VITALS: BP 142/82
--- NOTE | 2018-12-15 04:47 | NUR ---
B) patient is alert and oriented to self, wanders at times, calm and cooperative this shift, I) Administered scheduled medications as ordered, monitored for safety, R) Mediation compliant, follows instructions, social with peers and staff, P) Continue plan of care.
[2018-12-15 07:30] VITALS: BP 124/73; BP 138/78
--- NOTE | 2018-12-15 08:47 | NUR ---
B) The patient is more alert and he is conversing and making a little more sense. He is pleasant and polite, he ambulates, but he does not see well. He is in the dining room having breakfast at this time. He has not shown any aggression. He still gets confused and does not know where the bathroom is, but redirects easily. I) Provide prescribed meds. Encourage group participation. R) The patient is compliant with meds and he has no problems with swallowing. P) Continue POC.
--- NOTE | 2018-12-15 09:56 | NUR ---
During medication pass, the patient said "Hey can you tell me how I can get out of here to get my car, it is just right out there." Explained to him that "No, his car is not outside, he is in the hospital and he isn't driving right now since he fell and he is not seeing well." He said "Oh, yea, that's right, I can't see well right now." He is pleasant, he did not argue, he was able to be redirected.
[2018-12-15 20:07] VITALS: BP 156/86
--- NOTE | 2018-12-15 21:44 | NUR ---
B) Patient is alert and oriented to self, hallucinationg at times, seeing things on the floor, I) Administered scheduled medications as ordered,monitored for safety, redirected as needed, R) Mediation compliant, calm and cooperative this shift. P) Continue plan of care.
[2018-12-16 07:00] VITALS: BP 136/80
--- NOTE | 2018-12-16 10:00 | NUR ---
RECEIVED PATIENT IN DINING ROOM FOR B'FAST, ALERT, CALM, CONFUSED, PLEASANT AND COOPERATIVE, NO AGGRESSION NOTED. MEDS ADMIN PER ORDERS WITH COMPLETE MED COMPLIANCE NOTED. COOPERATIVE WITH GROUP ACTIVITY AND STAFF REQUESTS. CONT POC INCLUDING MEDS AND GROUP THERAPY UNTIL SCHEDULED DISCHARGE THIS UPCOMING MONDAY.
--- NOTE | 2018-12-16 18:14 | NUR ---
SPOUSE VISITED TODAY AND A GOOD VISIT WAS ENJOYED BY BOTH PARTIES.
[2018-12-16 19:59] VITALS: BP 135/73
--- NOTE | 2018-12-16 21:21 | NUR ---
RECEIVED IN DAYROOM. RESTING IN RECLINER WITH EYES OPEN AND WATCHING TV. CALM AND COOPERATIVE WITH CARE AND ASSESSMENT. NO AGGRESSIVE BEHAVIORS. REDIRECT AND REORIENT NEEDED. RESTING IN BED WITH EYES CLOSED AT THIS TIME. CONTINUE PLAN OF CARE.
--- NOTE | 2018-12-17 08:00 | NUR ---
BRANDONMALACHI IS MORE ALERT AND MAKING SENSE VERBALLY. PARTICIPATED IN GROUP DISCUSSIONS. HE GETS CONFUSED TO WHERE THE BATHROOM IS LOCATED, BUT IS EASILY REDIRECTED. NO AGGRESSION NOTED. FAll PRECAUTIONS IN PLACE. HE IS MEDICATION COMPLIANT. WILL CONTINUE PLAN OF CARE.
[2018-12-17 08:29] VITALS: BP 142/89
[2018-12-17] MEDS ORDERED: GEODON20 MG PO (17:41)
[2018-12-17] MEDS ORDERED: DESERYL PO (17:41)
[2018-12-17] MEDS ORDERED: NAMENDA5 MG PO (17:42)
[2018-12-17] MEDS ORDERED: Aricept PO (17:43)
[2018-12-17] MEDS ORDERED: VOLTAREN100 GM TOPICAL (17:43)
[2018-12-17] MEDS ORDERED: LIPITOR20 MG PO (17:44)
[2018-12-17] MEDS ORDERED: MICARDIS20 MG PO (17:44)
[2018-12-17] MEDS ORDERED: SENNA8.6 MG PO (17:45)
[2018-12-17] MEDS ORDERED: PROTONIX40 MG PO (17:45)
[2018-12-17] MEDS ORDERED: NAPROXEN250 MG PO (17:45)
[2018-12-17] MEDS ORDERED: LIDODERM 5 %1 PATCH TRANSDERM (17:46)
[2018-12-17] MEDS ORDERED: MELATONIN 3 MG1 TAB PO (17:46)
[2018-12-17 22:23] VITALS: BP 114/69; BP 132/69
[2018-12-18 08:00] VITALS: BP 134/78
--- NOTE | 2018-12-18 15:10 | NUR ---
DISCHARGE PAPERWORK COMPLETED. BELONGINGS GATHERED AND GIVEN TO BURIAL VAULT DELIVERER AND INSTALLER. LEFT HOSPITAL [facility] FROM [facility]. REPORT CALLED TO NURSE PER CHRIS WEAVER RN.
--- NOTE | 2018-12-18 16:50 | PN ---
PATIENT:BRIAN WALKER MEDICAL RECORD: [id number] LOCATION:[address] ADMISSION DATE: 11/25/18 PROGRESS NOTE DATE OF SERVICE: 12/15/2018 SUBJECTIVE: Mr. Walker is a 78-year-old male who came from his nursing facility at [facility] after he had become aggressive there. The patient for several days now has been nonaggressive very confused, ambulatory, but simply pleasantly confused. Continues to think he needs to go to the bank, but easily redirected. He slept 7-1/2 hours last night, eating 100% of meals. Last bowel movement . OBJECTIVE: VITAL SIGNS: 97.1, 108, 21, 124/73, and 98% on room air. ASSESSMENT: Unchanged. PLAN: If he continues to do well, we will plan discharge to [facility] on Monday. Case discussed with nursing. Chart was reviewed and the patient interviewed. TRANSINT:[id number] Voice Confirmation ID: [id number] DOCUMENT ID: [id number] GLENN LOPEZ MD at 1650 CC: [id number] DICTATION DATE: 12/15/18 1303 CASTING OPERATOR HELPER: 12/15/[address] [facility] [address] [id number]
--- NOTE | 2018-12-18 16:50 | PN ---
PATIENT:BRIAN WALKER MEDICAL RECORD: [id number] LOCATION:[address] ADMISSION DATE: 11/25/18 PROGRESS NOTE DATE OF SERVICE: 12/17/2018 SUBJECTIVE: Ms. Walker is a 78-year-old male who was admitted after becoming aggressive already confused at his nursing facility. Over the course of treatment here at [facility], he received Geodon 20 mg and very gradually his behavior improved. He is still confused, still thinks he wants to go to the bank, but has not been aggressive with care in several days. VITAL SIGNS: His last vitals 98.2, 89, 18, 142/89, and 98%. He slept 7 hours last night, eating 100, 90, and 100%. Last bowel movement on the . ASSESSMENT: Unchanged. PLAN: Anticipate discharge orders done back to [facility] tomorrow. Case discussed with nursing. Chart reviewed. The patient interviewed. TRANSINT:[id number] Voice Confirmation ID: [id number] DOCUMENT ID: [id number] GLENN LOPEZ MD at 1650 CC: [id number] DICTATION DATE: 12/17/18 1753 COMPLAINT CLERK: 12/18/18 0427 ADM IN [facility] [address] [id number]
--- NOTE | 2018-12-18 16:50 | HP ---
PATIENT: BRIAN WALKER MEDICAL RECORD: [id number] ACCOUNT: [id number] LOCATION:[address] : 42 ADMISSION DATE: 11/25/18 PCP: No PCP HISTORY AND PHYSICAL EXAMINATION ADDENDUM Mr. Walker is a 78-year-old resident at [facility], who had become aggressive, confused, and aggressive with other residents required transfer. Nursing reports that the patient has been calmer, more appropriate. He slept 6.25 hours last night, eating 100% of his meals. On interview, he is alert and oriented times 1 only. He has no idea he is in the hospital or why he is here. He states as nursing reports that he is always just wanting go to the bank, but is easily redirected. His latest vital signs are 97.3, 59, 18, 136/69, and 98%. By social work report, the patient is to go back to [facility] next Monday. Case discussed with nursing. Chart reviewed and the patient interviewed. TRANSINT:[id number] Voice Confirmation ID: [id number] DOCUMENT ID: [id number] GLENN LOPEZ MD at 1650 CC: [id number] DICTATION DATE: 12/14/18 153 DRILL FOREMAN: 12/14/182050 ADM IN [id number] [place] [address]
== END 2018-12-18 15:10 | DRG 57 ==
LOC: D.ER 23:29 → D.PSYCH 11-25 01:42
PROVIDERS: Family Medicine; ADMIT Psychiatry & Neurology Psychiatry; ATTEND Psychiatry & Neurology Psychiatry
DX: G30.1 Alzheimer's disease with late onset (principal); F02.81 Dementia in other diseases classified elsewhere, unspecified severity, with behavioral disturbance; F01.51 Vascular dementia, unspecified severity, with behavioral disturbance; E78.5 Hyperlipidemia, unspecified; I10 Essential (primary) hypertension; K21.9 Gastro-esophageal reflux disease without esophagitis; K59.00 Constipation, unspecified; G47.00 Insomnia, unspecified; M54.5 Low back pain; M25.519 Pain in unspecified shoulder; G89.29 Other chronic pain; I69.319 Unspecified symptoms and signs involving cognitive functions following cerebral infarction